=== PATIENT | female | born 1970 | race Caucasian/White ===

== ENCOUNTER 2018-11-19 18:11 | Emergency (ER) | payer OTHER ==
[~2018-11-19] VITALS: Ht 157.5 cm; Wt 95.3 kg
[2018-11-19] MEDS ORDERED: NORCO 5-325 TA1 EACH PO (19:30)
[2018-11-19 19:39] VITALS: BP 103/62
== END 2018-11-19 19:40 | disposition home or self-care (01) ==
LOC: M.ERS 18:11
DX: S93.691A Other sprain of right foot, initial encounter (principal); Z88.6 Allergy status to analgesic agent; Z90.710 Acquired absence of both cervix and uterus; Z91.041 Radiographic dye allergy status; W00.0XXA Fall on same level due to ice and snow, initial encounter; Y93.89 Activity, other specified; Y92.89 Other specified places as the place of occurrence of the external cause; Y99.8 Other external cause status